=== PATIENT | male | born 1990 | race Caucasian/White ===

== ENCOUNTER 2016-11-21 06:34 | Emergency (ER) | payer OTHER ==
--- NOTE | ~2016-11-21 | CR157 ---
[facility] A Service of [facility] RADIOLOGY TEXT RESULTS PATIENT: JESSICA WILLARD LOCATION: EMILY : [birth year] UNIT #: [id number] AGE: [address]: Salomón Velázquez MD SEX: M ORDER DR: [id number] [id number] [facility]. [place], [place] [address] [id number] E MR#: [id number] Acc #: [id number] NAME: JESSICA WILLARD : 1990 SEX: M STUDY DATE/TIME: 11/21/2016 6:51 UNIT: EMILY ROOM: STUDY DESCRIPTION: CR Humerus Min 2 View Rt Attending Physician: Salomón Velázquez M.D. Ordering Physician: Salomón Velázquez M.D. Primary Care Physician: Maricruz Marquez M.D. MEDICAL IMAGING REPORT This report is preliminary unless electronic signature is present EXAM Right humerus, 2 views 11/21/2016. INDICATIONS 26-year-old male complaining of pain and loss of movement in the right arm and humerus since shooting heroin in the right forearm 3 hours ago this morning. TECHNIQUE 2 views of the right humerus. COMPARISON No comparisons. FINDINGS Chronic-appearing degenerative and/or post-traumatic changes of the distal clavicle and AC joint noted. No acute fracture. No retained opaque foreign body. IMPRESSION 1. 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 Dictated by... Angelo Cook M.D. THIS IS AN ELECTRONICALLY VERIFIED REPORT Angelo Cook M.D. at 11/21/2016 2:02 PM CHIDI/deb TD: 11/21/2016 13:46 JOB #: [id number] [facility] A Service of [facility] RADIOLOGY TEXT RESULTS PATIENT: JESSICA WILLARD LOCATION: [facility] : [birth year] UNIT #: [id number] AGE: [address]: Salomón Velázquez MD SEX: M ORDER DR: MEDICAL IMAGING REPORT COPY
--- NOTE | ~2016-11-21 | CR230 ---
[facility] A Service of [facility] RADIOLOGY TEXT RESULTS PATIENT: JESSICA WILLARD LOCATION: EMILY : [birth year] UNIT #: [id number] AGE: [address]: Salomón Velázquez MD SEX: M ORDER DR: [id number] [facility] [address]. [place], [place] [address] [id number] E MR#: [id number] Acc #: [id number] NAME: JESSICA WILLARD : 1990 SEX: M STUDY DATE/TIME: 11/21/2016 6:54 UNIT: EMILY ROOM: STUDY DESCRIPTION: CR Shoulder Min 2 View Rt Attending Physician: Salomón Velázquez M.D. Ordering Physician: Salomón Velázquez M.D. Primary Care Physician: Maricruz Marquez M.D. MEDICAL IMAGING REPORT This report is preliminary unless electronic signature is present EXAM Right shoulder 11/21/2016. INDICATIONS Pain, loss of movement in the right arm tonight that began 3 hours ago, after shooting heroin in the right forearm. Right shoulder and humerus pain. TECHNIQUE 2 views of the right shoulder. COMPARISON No comparisons. FINDINGS There are degenerative or post-traumatic changes involving the AC joint and distal clavicle. No acute-appearing fracture. No retained opaque foreign body in the field of view. IMPRESSION 1. No acute fracture or retained opaque foreign body. 2. 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 Dictated by... Angelo Cook M.D. THIS IS AN ELECTRONICALLY VERIFIED REPORT Angelo Cook M.D. at 11/21/2016 2:02 PM GORGEY/deb TD: 11/21/2016 13:43 JOB #: [id number] [facility] A Service [facility] RADIOLOGY TEXT RESULTS PATIENT: JESSICA WILLARD LOCATION: [facility] : [birth year] UNIT #: [id number] AGE: [address]: Salomón Velázquez MD SEX: M ORDER DR: MEDICAL IMAGING REPORT COPY
[~2016-11-21 06:34] MED LIST: ATIVAN PO; BACTRIM DS TABL1 TA1 PO; BACTRIM DS TABL1 TAB PO; CIPRO PO; CLONIDINE; IBUPROFEN PO; IBUPROFEN800 MG PO; KEFLEX500 MG PO; MEDROL PO; NORCO 5/325 TAB1 TAB PO; RISPERDAL; VICODIN 5/1 TAB 5/50 PO; VICODIN 5/500 T1 TAB PO
== END 2016-11-21 07:51 | disposition home or self-care (01) ==
LOC: CED 06:34
DX: S14.3XXA Injury of brachial plexus, initial encounter (principal); F31.9 Bipolar disorder, unspecified; F17.200 Nicotine dependence, unspecified, uncomplicated; F90.9 Attention-deficit hyperactivity disorder, unspecified type; B19.10 Unspecified viral hepatitis B without hepatic coma; B19.20 Unspecified viral hepatitis C without hepatic coma; W34.00XA Accidental discharge from unspecified firearms or gun, initial encounter; Y92.9 Unspecified place or not applicable
CPT/HCPCS: 73030; 73060; 99284

== ENCOUNTER → 2016-12-11 23:59 | Emergency (ER) | payer OTHER ==
--- NOTE | ~2016-12-11 | EKG ---
PATIENT: JESSICA WILLARD UNIT #: [id number] Ventricular Rate: 94 BPM Atrial Rate: 94 BPM P-R Interval: 142 ms QRS Duration: 86 ms Q-T Interval: 320 ms QTC Calculation(Bezet): 400 ms P [place]: 70 degrees Calculated R [place]: 45 degrees Calculated T [place]: 64 degrees Diagnosis Line: Normal sinus rhythm Diagnosis Line: Normal ECG Diagnosis Line: When compared with ECG of 02-NOV-2016 14:44, Diagnosis Line: Vent. rate has increased BY 35 BPM Diagnosis Line: Confirmed by SHIRLENE MASON MD ([id number]) on 12/14/2016 Diagnosis Line: 10:54:40 PM INTERPRETING MD: MARLON MARTÍNEZ
== END | disposition left against medical advice (07) ==
LOC: CED 23:59
DX: Z53.21 Procedure and treatment not carried out due to patient leaving prior to being seen by health care provider (principal)
CPT/HCPCS: 93005

== ENCOUNTER 2017-01-25 04:45 | Emergency (ER) | payer OTHER | END 2017-01-25 07:16 | disposition left against medical advice (07) | LOC: CED 04:45 | DX: S09.90XA Unspecified injury of head, initial encounter (principal); S61.214A Laceration without foreign body of right ring finger without damage to nail, initial encounter; S20.419A Abrasion of unspecified back wall of thorax, initial encounter; F17.210 Nicotine dependence, cigarettes, uncomplicated; X58.XXXA Exposure to other specified factors, initial encounter; Y92.009 Unspecified place in unspecified non-institutional (private) residence as the place of occurrence of the external cause | CPT/HCPCS: 12002; 99284 ==

== ENCOUNTER 2017-03-03 14:17 | Emergency (ER) | payer OTHER | END 2017-03-03 15:10 | disposition home or self-care (01) | LOC: CED 14:17 | DX: B86 Scabies (principal); H05.223 Edema of bilateral orbit | CPT/HCPCS: 99283 ==